=== PATIENT | male | born 1955 | race Caucasian/White ===

== ENCOUNTER 2019-08-31 16:17 | Emergency (ER) | payer MEDICARE, BC ==
[~2019-08-31] VITALS: Ht 182.9 cm; Wt 84.1 kg
[2019-08-31 16:22] VITALS: Ht 182.9 cm; Wt 84.1 kg
[2019-08-31] MEDS ORDERED: KEFLEX500 MG PO (17:39)
[2019-08-31] MEDS ORDERED: HYDROCODON-ACE1 EAC7 PO (17:39)
[2019-08-31 17:48] VITALS: BP 134/72
== END 2019-08-31 17:48 | disposition home or self-care (01) ==
LOC: D.ER 16:17 → EDBD 16:17 → D.ER 17:48
DX: S61.245A Puncture wound with foreign body of left ring finger without damage to nail, initial encounter (principal); I10 Essential (primary) hypertension; W45.0XXA Nail entering through skin, initial encounter; Y93.9 Activity, unspecified; Y92.9 Unspecified place or not applicable